=== PATIENT | male | born 1985 | race Caucasian/White ===

== ENCOUNTER 2020-11-21 09:24 | Inpatient (IN) | payer OTHER ==
[~2020-11-21] VITALS: Ht 180.3 cm; Wt 96.5 kg
[2020-11-21] MEDS ORDERED: CLON0.5T2 PO (09:49)
[2020-11-21] MEDS ORDERED: PAXI20TA29 PO (09:49)
[2020-11-21] MEDS ORDERED: BOTO10VL IM (09:49)
[2020-11-21 11:08] LABS: HEMATOCRIT 46.3 % (42.0-52.0); HEMOGLOBIN 15.6 g/dl (13.5-17.5); MEAN CORPUSCULAR HEMOGLOBIN 30.5 pg (27.0-33.0); MEAN CORPUSCULAR HGB CONC 33.7 g/dl (32.0-36.5); MEAN CORPUSCULAR VOLUME 90.4 fl (80.0-96.0); PLATELET COUNT, AUTOMATED 270 10^3/uL (150-450); RED BLOOD COUNT 5.12 10^6/uL (4.30-6.10); WHITE BLOOD COUNT 9.5 10^3/uL (4.0-10.0)
[2020-11-21 11:41] LABS: AMPHETAMINES LEVEL URINE NEGATIVE (NEGATIVE); BARBITURATES URINE NEGATIVE (NEGATIVE); BENZODIAZEPINES URINE NEGATIVE (NEGATIVE); CANNABINOIDS URINE POSITIVE (NEGATIVE); COCAINE METABOLITE URINE NEGATIVE (NEGATIVE); METHADONE URINE NEGATIVE (NEGATIVE); OPIATES URINE NEGATIVE (NEGATIVE); PHENCYCLIDINE URINE NEGATIVE (NEGATIVE)
[2020-11-21 11:50] LABS: ACETAMINOPHEN LEVEL < 2.0 UG/ML (10.0-30.0); ALBUMIN 4.2 GM/DL (3.2-5.2); ALT/SGPT 25 U/L (12-78); BILIRUBIN,DIRECT 0.1 MG/DL (0.0-0.2); BILIRUBIN,TOTAL 0.6 MG/DL (0.2-1.0); BLOOD UREA NITROGEN 12 MG/DL (7-18); CALCIUM LEVEL 9.2 MG/DL (8.5-10.1); CARBON DIOXIDE LEVEL 28 MEQ/L (21-32); CHLORIDE LEVEL 105 MEQ/L (98-107); CREATININE FOR GFR 0.93 MG/DL (0.70-1.30); ETHYL ALCOHOL (ETHANOL) 0.003 % (0.000-0.010); GLOMERULAR FILTRATION RATE > 60.0 (>60); GLUCOSE, FASTING 91 MG/DL (70-100); POTASSIUM SERUM 4.3 MEQ/L (3.5-5.1); SALICYLATE LEVEL 2.8 MG/DL (5.0-30.0); SODIUM LEVEL 140 MEQ/L (136-145); THYROID STIMULATING HORMONE 0.766 uIU/ML (0.358-3.740); TOTAL PROTEIN 7.4 GM/DL (6.4-8.2)
[2020-11-21] MEDS ORDERED: HOME MED LIST COMPLETE! XX SCH (14:50)
[2020-11-21] MEDS ORDERED: MOM 30ML SUSPENSION UDC PO PRN (14:55)
[2020-11-21] MEDS ORDERED: NICOTINE 21MG/24HR 1 EA TRANSDERMAL TD PRN (14:55)
[2020-11-21] MEDS ORDERED: MAALOX 30 ML SUSP *UDC PO PRN (14:55)
[2020-11-21] MEDS ORDERED: ACETAMINOPHEN TAB 650MG DOSE (2X325MG) PO PRN (14:55)
[2020-11-21] MEDS ORDERED: IBUPROFEN 400MG TAB PO PRN (14:55)
[2020-11-21 15:45] LABS: RSV AMPLIFICATION NEGATIVE (NEGATIVE)
[2020-11-21 16:27] VITALS: BP 139/89
[2020-11-21] MEDS ORDERED: LORazepam 2 MG TAB PO PRN (18:40)
[2020-11-21 18:41] VITALS: BP 139/89
[2020-11-21] MEDS: clonazePAM 0.5 MG TAB PO SCH (20:02)
[2020-11-21] MEDS: THIAMINE 100 MG TAB PO SCH (20:02)
[2020-11-21] MEDS: traZODone 50 MG TAB PO PRN (20:52)
[2020-11-21 22:20] VITALS: BP 139/89
[2020-11-22 06:22] VITALS: BP 110/58
[2020-11-22 06:39] VITALS: BP 110/58
[2020-11-22] MEDS: PARoxetine 20MG TABLET PO SCH (08:05)
[2020-11-22] MEDS: clonazePAM 0.5 MG TAB PO SCH ×2 (08:05→20:27)
[2020-11-22] MEDS: FOLIC ACID 1 MG TAB PO SCH (08:06)
[2020-11-22] MEDS: MULTIVITAMINS/MINERALS THERAP 1 TAB PO SCH (08:06)
[2020-11-22] MEDS: THIAMINE 100 MG TAB PO SCH ×2 (08:06→20:27)
[2020-11-22] MEDS ORDERED: INFLUENZA QUADRIVALENT PF VACCINE 0.5ML SYRINGE IM ONE (09:00)
[2020-11-22 16:24] VITALS: BP 143/66
[2020-11-22] MEDS: traZODone 50 MG TAB PO PRN (21:18)
[2020-11-23 06:42] VITALS: BP 122/60
[2020-11-23] MEDS: MULTIVITAMINS/MINERALS THERAP 1 TAB PO SCH (08:13)
[2020-11-23] MEDS: FOLIC ACID 1 MG TAB PO SCH (08:13)
[2020-11-23] MEDS: THIAMINE 100 MG TAB PO SCH ×2 (08:14→20:23)
[2020-11-23] MEDS: clonazePAM 0.5 MG TAB PO SCH ×2 (08:16→20:23)
[2020-11-23] MEDS: PARoxetine 20MG TABLET PO SCH (08:18)
[2020-11-23] MEDS ORDERED: DIVALPROEX 125 MG TAB PO ONE (11:00)
[2020-11-23 16:21] VITALS: BP 140/72
[2020-11-23 16:32] VITALS: BP 140/72
[2020-11-23] MEDS: traZODone 50 MG TAB PO PRN (21:39)
[2020-11-24 07:04] VITALS: BP 129/64
[2020-11-24] MEDS: PARoxetine 20MG TABLET PO SCH (08:12)
[2020-11-24] MEDS: clonazePAM 0.5 MG TAB PO SCH (08:13)
[2020-11-24] MEDS ORDERED: DIVALPROEX 250 MG TAB PO SCH (09:00)
[2020-11-24] MEDS ORDERED: DEPA250T32 PO (09:07)
[2020-11-24] MEDS ORDERED: NICO21PAT TD (09:07)
[2020-11-24] MEDS ORDERED: PAXI20TA29 PO (09:07)
[2020-11-24] MEDS ORDERED: CLON0.5T2 PO (09:07)
== END 2020-11-24 15:02 | disposition hospice, home (50) | DRG 885 ==
LOC: M ED 09:24 → M ED INP 15:19 → M PSY 16:30
PROVIDERS: ADMIT Psychiatry & Neurology Child & Adolescent Psychiatry; ATTEND Psychiatry & Neurology Child & Adolescent Psychiatry
DX: F31.81 Bipolar II disorder (principal); F41.1 Generalized anxiety disorder; Z88.8 Allergy status to other drugs, medicaments and biological substances; G47.33 Obstructive sleep apnea (adult) (pediatric); F10.10 Alcohol abuse, uncomplicated

== ENCOUNTER 2021-09-06 08:10 | Emergency (ER) | payer MEDICARE, OTHER ==
[~2021-09-06] VITALS: Ht 182.9 cm; Wt 94.9 kg
[2021-09-06 08:10] VITALS: BP 142/84
[~2021-09-06 08:10] MED LIST: BOTO10VL IM; CLON0.5T2 PO; DEPA250T32 PO; NICO21PAT TD; PAXI20TA29 PO
[2021-09-06] MEDS ORDERED: PARO30TA4 (08:21)
[2021-09-06] MEDS ORDERED: DISU1TAB6 (08:21)
[2021-09-06] MEDS ORDERED: DIVA500T94 (08:21)
[2021-09-06] MEDS ORDERED: clonazePAM 0.5 MG TAB PO ONE (08:55)
== END 2021-09-06 10:20 | disposition home or self-care (01) ==
LOC: M ED 08:10
DX: F41.9 Anxiety disorder, unspecified (principal); Z63.0 Problems in relationship with spouse or partner; Z59.9 Problem related to housing and economic circumstances, unspecified; F10.10 Alcohol abuse, uncomplicated; Z88.1 Allergy status to other antibiotic agents; Z79.899 Other long term (current) drug therapy

== ENCOUNTER → 2023-08-13 | Outpatient (CLI) | payer OTHER ==
[~2023-08-13] MED LIST changes: +DISU1TAB7; +DIVA500T94; +PARO30TA4; -PAXI20TA29 PO; +PAXI20TA30 PO
[2023-08-13 10:57] LABS: ALBUMIN 4.3 G/DL (3.2-5.2); ALKALINE PHOSPHATASE 50 U/L (46-116); ALT/SGPT 20 U/L (7.0-40); AST/SGOT 13 U/L (<34); BILIRUBIN,TOTAL 0.5 MG/DL (0.3-1.2); BLOOD UREA NITROGEN 17 MG/DL (9-23); CARBON DIOXIDE LEVEL 29 MMOL/L (20-31); CHLORIDE LEVEL 106 MMOL/L (98-107); CHOLESTEROL LEVEL 205 MG/DL (<200); CHOLESTEROL RISK RATIO 4.59 (<5); CREATININE FOR GFR 0.94 MG/DL (0.70-1.30); GLOMERULAR FILTRATION RATE > 60.0 (>60); GLUCOSE, FASTING 91 MG/DL (60-100); HDL CHOLESTEROL 44.6 MG/DL (>40); LDL CHOLESTEROL 131.8 MG/DL (<100); NON-HDL-C 160.4 MG/DL; POTASSIUM SERUM 4.3 MMOL/L (3.5-5.1); SODIUM LEVEL 140 MMOL/L (136-145); TOTAL PROTEIN 7.7 G/DL (5.7-8.2); TRIGLYCERIDES LEVEL 143 MG/DL (<150)
[2023-08-13 11:11] LABS: BASO # 0.1 10^3/uL (0.0-0.2); BASO % 0.4 % (0.0-1.0); EOS # 0.2 10^3/uL (0.0-0.5); EOS % 1.1 % (0.0-3.0); HEMATOCRIT 47.1 % (42.0-52.0); HEMOGLOBIN 15.7 g/dl (13.5-17.5); LYMPH % 17.5 % (24.0-44.0); MEAN CORPUSCULAR HEMOGLOBIN 29.1 pg (27.0-33.0); MEAN CORPUSCULAR HGB CONC 33.3 g/dl (32.0-36.5); MEAN CORPUSCULAR VOLUME 87.2 fl (80.0-96.0); MONO # 1.3 10^3/uL (0.0-0.8); MONO % 7.5 % (2.0-8.0); NEUTROPHILS # 12.6 10^3/uL (1.5-8.5); NEUTROPHILS % 73.2 % (36.0-66.0); PLATELET COUNT, AUTOMATED 284 10^3/uL (150-450); WHITE BLOOD COUNT 17.3 10^3/uL (4.0-10.0)
== END ==
LOC: M PLALAB 08:31
PROVIDERS: ATTEND Psychiatry & Neurology Psychiatry
DX: F10.20 Alcohol dependence, uncomplicated (principal); F12.20 Cannabis dependence, uncomplicated; F31.81 Bipolar II disorder